=== PATIENT | male | born 1985 | race Caucasian/White ===

== ENCOUNTER 2016-11-12 06:18 | Day surgery (SDC) | payer MEDICAID ==
[2016-11-09 15:57] LABS: HEMATOCRIT 46.8 % (42.0-54.0); HEMOGLOBIN 16.4 g/dL (13.5-17.5); MCV 85.7 fL (80.0-100.0); MEAN PLATELET VOLUME 10.1 fL (7.4-10.4); RBC 5.46 10x6/uL (4.20-6.10); RDW 13.2 % (11.5-14.5); WBC 10.8 10x3/uL (4.8-10.8)
[2016-11-09 16:20] LABS: CALC OSMOLALITY 286 mosm/kg (275-300); CALCIUM 8.8 mg/dL (8.5-10.1); CARBON DIOXIDE 31.2 mmol/L (21.0-32.0); CHLORIDE - SERUM 105 mmol/L (98-107); CREATININE - SERUM 0.9 mg/dL (0.6-1.3); POTASSIUM - SERUM 4.3 mmol/L (3.5-5.1); SODIUM 142 mmol/L (136-145); UREA NITROGEN 13 mg/dL (7-18); eGFR NON AFRICAN AMERICAN > 90 mL/min (90-120)
[2016-11-09 16:26] LABS: GLUCOSE 177 mg/dL (74-106)
[~2016-11-12] VITALS: Ht 152.4 cm; Wt 131.5 kg
[~2016-11-12 06:18] MED LIST: BACTRIM DS TABL1 TAB PO; CYMBALTA30 MG PO; ENDOCET 10-3251 TAB PO; GLUCOPHAGE500 MG PO; HYDROCODONE-APA1 TAB PO; JANUMET 50-1,001 TAB PO; JANUVIA50 MG PO; NAPROSYN500 MG PO; NOVOLIN 70/30 110 ML SQ; NOVOLOG MIX 70/10 ML SQ; PRINIVIL10 MG PO; PRINIVIL20 MG PO; TESTOSTERON200 MG/ML IM; TRICOR145 MG PO; VIBRAMYCIN 100100 MG PO; XARELTO15 MG PO; XARELTO20 MG PO
[2016-11-12] MEDS ORDERED: TESSALON PERLE100 MG PO (07:09)
[2016-11-12] MEDS ORDERED: AMBIEN10 MG PO (07:09)
[2016-11-12 07:11] VITALS: Ht 152.4 cm; Wt 131.5 kg
[2016-11-12] MEDS ORDERED: NORCO 7.5/325 T1 TA1 PO (10:43)
--- NOTE | 2016-11-12 11:28 | NUR ---
1050 VOIDED 500ML RAFFAELE COLORED URINE PER URINAL WITHOUT DIFFICULTY. IV DC'ED WITH CATH INTACT & 100ML LTC. PRESSURE TO SITE. PT DRESSING. FEMALE VISITOR @ BEDSIDE. Oswald FISHMAN R.N. [id number] AWAKE & ALERT. DRESSED. GVIEN D/C INSTRUCTIONS INCLUDING RX: [id number]/325MG, MED REC, DR. HAUSER'S D/C INSTRUCTION SHEET, & RTC APPT.. PT VOICED UNDERSTANDING. TO PRIVATE CAR PER WHEELCHAIR BY VOLUNTEER. HOME WITH FEMALE STRIPPER APPRENTICE/VISITOR. Oswald FISHMAN R.N.
== END 2016-11-12 11:05 | disposition home or self-care (01) ==
LOC: D.OPS 06:18 → D.PAN 08:30 → D.OPS 11:05
PROVIDERS: Anesthesiology
DX: M72.2 Plantar fascial fibromatosis (principal); G47.30 Sleep apnea, unspecified; I10 Essential (primary) hypertension; E11.9 Type 2 diabetes mellitus without complications; K21.9 Gastro-esophageal reflux disease without esophagitis

== ENCOUNTER 2019-06-01 17:40 | Emergency (ER) | payer SELFPAY ==
[~2019-06-01] VITALS: Ht 177.8 cm; Wt 118.2 kg
[~2019-06-01 17:40] MED LIST changes: +AMBIEN10 MG PO; +NORCO 7.5/325 T1 TA1 PO; +TESSALON PERLE100 MG PO
[2019-06-01 18:12] VITALS: Ht 177.8 cm; Wt 118.2 kg
[2019-06-01] MEDS ORDERED: KEFLEX500 MG PO (20:19)
[2019-06-01 20:47] VITALS: BP 135/88
== END 2019-06-01 20:52 | disposition home or self-care (01) ==
LOC: D.ER 17:40
DX: L05.91 Pilonidal cyst without abscess (principal); I10 Essential (primary) hypertension; E11.9 Type 2 diabetes mellitus without complications